=== PATIENT | male | born 1950 | race Two or more races ===

== ENCOUNTER 2022-03-09 20:11 | Inpatient (IN) | payer MEDICAID ==
[~2022-03-09] VITALS: Ht 165.1 cm; Wt 72.2 kg
[2022-03-09 22:26] LABS: Basophils # (auto) 0 10 ^3/uL (0-0.2); Basophils % (auto) 0.6 % (0.0-2.0); Eosinophils # (auto) 0.4 10 ^3/uL (0-0.8); Eosinophils % (auto) 5.9 % (0.0-7.0); Hematocrit 41.1 % (41.0-53.0); Hemoglobin 14.2 g/dL (13.5-17.5); Lymphocytes # (auto) 1.6 10 ^3/uL (0.4-5.4); Lymphocytes % (auto) 25.7 % (10.0-50.0); Mean Corpuscular Hemoglobin 29.6 pg (28.0-32.0); Mean Corpuscular Hgb Conc. 34.6 g/dL (32.0-36.0); Mean Corpuscular Volume 85.5 fL (80.0-100.0); Monocytes # (auto) 0.8 10 ^3/uL (0-1.3); Monocytes % (auto) 12.4 % (0.0-12.0); Neutrophils # (auto) 3.4 10 ^3/uL (1.6-8.6); Neutrophils % (auto) 55.4 % (37.0-80.0); Nucleated Red Blood Cells % 0.5 %; Red Cell Distribution Width 14.2 % (11.8-14.3); White Blood Cell 6.1 10^3/uL (4.4-10.8)
[2022-03-09 22:34] LABS: INR 0.98 (0.9-1.15)
[2022-03-09 22:38] LABS: Albumin 4.2 g/dL (3.4-5.0); BUN/Creatinine Ratio 18.6; Calcium 9.2 mg/dL (8.5-10.1); Potassium 4.4 mmol/L (3.5-5.1)
[2022-03-09 22:41] LABS: Bilirubin, Total 0.4 mg/dL (0.2-1.0); Total Protein 7.8 g/dL (6.4-8.2)
[2022-03-10] VITALS (8 sets, daily range): BP systolic 118–150; BP diastolic 55–91
[2022-03-10] MEDS ORDERED: HYDROcodone-ACET 5/325MG TAB PO PRN (03:15)
[2022-03-10] MEDS ORDERED: ACETAMINOPHEN 325 MG TAB PO PRN (03:15)
[2022-03-10] MEDS ORDERED: ONDANSETRON HCL 4 MG/2 ML VIAL IV PRN ×2 (03:15→15:15)
[2022-03-10] MEDS ORDERED: D5W/SOD CHLO 0.9% 1,000 ML IV SCH (03:15)
[2022-03-10] MEDS ORDERED: MORPHINE SULFATE INJ 2 MG/ml SYRG IV PRN (03:15)
[2022-03-10] MEDS: PANTOPRAZOLE 40 MG TAB PO SCH ×2 (09:56→09:58)
[2022-03-10] MEDS ORDERED: TETRACAINE 1% INJ 2 ML VIAL IJ ONE (13:49)
[2022-03-10] MEDS ORDERED: ceFAZolin 1GM/50ML 100 ML IV ONE (14:02)
[2022-03-10] MEDS ORDERED: fentaNYL CITRATE 100 MCG/2 ML VL ONE (14:24)
[2022-03-10] MEDS ORDERED: MIDAZOLAM HCL 2MG/2ML 2ml VIAL (1mg/ml) ONE (14:24)
[2022-03-10] MEDS ORDERED: MEPERIDINE HCL (50 MG/ML) 1 ML VIAL ONE (14:24)
[2022-03-10] MEDS ORDERED: MORPHINE SULF PF 5 MG/10 ML VIAL ONE (14:32)
[2022-03-10] MEDS ORDERED: PROPOFOL 10 MG/ML 20 ML IV ONE (15:00)
[2022-03-10] MEDS ORDERED: DexAMETHasone SOD PHOS 10MG/1ML VIAL INJ ONE (15:00)
[2022-03-10] MEDS ORDERED: NALOXONE HCL 0.4 MG/ML VIAL IV PRN (15:15)
[2022-03-10] MEDS ORDERED: NALBUPHINE HCL 10 MG/1ml INJECTION SUBCUT ONE (15:15)
[2022-03-10] MEDS ORDERED: HYDROmorphone HCL 2 MG/ML VL/or syr IV PRN (15:15)
[2022-03-10] MEDS ORDERED: MIDAZOLAM HCL 2MG/2ML 2ml VIAL (1mg/ml) IV PRN (15:15)
[2022-03-10] MEDS ORDERED: ePHEDrine SULFATE 50 MG/ML AMP IV PRN (15:15)
[2022-03-10] MEDS ORDERED: LABETALOL HCL 5 MG/ML 4ML SYRINGE IV PRN (15:15)
[2022-03-10] MEDS ORDERED: DexAMETHasone SOD PHOS 10MG/1ML VIAL INJ IV PRN (15:15)
[2022-03-10] MEDS ORDERED: HYDROcodone-ACET 10/325MG TAB PO PRN (15:45)
[2022-03-10] MEDS: LACTATED RINGER'S 1,000 ML IV SCH ×2 (15:45→20:30)
[2022-03-10] MEDS: SODIUM CHLOR 0.9% PF (SALINE LOCK) 10ML VIAL/SYR IV SCH (22:05)
[2022-03-10] MEDS: ceFAZolin 2 GM in D5W 5% 100 ML IV SCH (22:45)
[2022-03-11] VITALS (24 sets, daily range): BP systolic 96–133; BP diastolic 61–77
[2022-03-11] MEDS ORDERED: IBUP800T26 PO (01:12)
[2022-03-11] MEDS: SODIUM CHLOR 0.9% PF (SALINE LOCK) 10ML VIAL/SYR IV SCH ×3 (05:53→22:36)
[2022-03-11 07:20] LABS: Basophils # (auto) 0 10 ^3/uL (0-0.2); Basophils % (auto) 0.1 % (0.0-2.0); Eosinophils # (auto) 0 10 ^3/uL (0-0.8); Hematocrit 37.4 % (41.0-53.0); Hemoglobin 13.1 g/dL (13.5-17.5); Lymphocytes # (auto) 0.5 10 ^3/uL (0.4-5.4); Lymphocytes % (auto) 6.3 % (10.0-50.0); Mean Corpuscular Hemoglobin 29.8 pg (28.0-32.0); Mean Corpuscular Hgb Conc. 35.1 g/dL (32.0-36.0); Mean Corpuscular Volume 84.7 fL (80.0-100.0); Monocytes # (auto) 0.4 10 ^3/uL (0-1.3); Neutrophils # (auto) 7.3 10 ^3/uL (1.6-8.6); Neutrophils % (auto) 88.6 % (37.0-80.0); Nucleated Red Blood Cells % 0.1 %; Red Blood Cells 4.41 10^6/uL (4.5-5.90); Red Cell Distribution Width 14.3 % (11.8-14.3); White Blood Cell 8.2 10^3/uL (4.4-10.8)
[2022-03-11 08:33] LABS: Albumin 3.5 g/dL (3.4-5.0); BUN/Creatinine Ratio 19.4; Calcium 9.2 mg/dL (8.5-10.1); Potassium 4.1 mmol/L (3.5-5.1)
[2022-03-11 08:45] LABS: Bilirubin, Total 0.8 mg/dL (0.2-1.0); Total Protein 6.7 g/dL (6.4-8.2)
[2022-03-11] MEDS: PANTOPRAZOLE 40 MG TAB PO SCH (09:14)
[2022-03-11] MEDS: ceFAZolin 1GM/50ML 50 ML IV SCH ×2 (09:16→09:50)
[2022-03-11] MEDS: ceFAZolin 2 GM in D5W 5% 100 ML IV SCH (09:16)
[2022-03-11] MEDS ORDERED: APIXABAN 2.5 MG TAB PO SCH (10:00)
[2022-03-11] MEDS: LACTATED RINGER'S 1,000 ML IV SCH (14:00)
[2022-03-11] MEDS: APIXABAN 5 MG TAB PO SCH (22:33)
[2022-03-12 04:56] VITALS: BP 124/68
[2022-03-12] MEDS: LACTATED RINGER'S 1,000 ML IV SCH ×2 (05:27→07:44)
[2022-03-12] MEDS: SODIUM CHLOR 0.9% PF (SALINE LOCK) 10ML VIAL/SYR IV SCH ×2 (06:07→14:00)
[2022-03-12 06:10] LABS: Basophils # (auto) 0 10 ^3/uL (0-0.2); Basophils % (auto) 0.3 % (0.0-2.0); Eosinophils # (auto) 0.1 10 ^3/uL (0-0.8); Eosinophils % (auto) 1.6 % (0.0-7.0); Hematocrit 36.6 % (41.0-53.0); Lymphocytes # (auto) 1.2 10 ^3/uL (0.4-5.4); Lymphocytes % (auto) 14.3 % (10.0-50.0); Mean Corpuscular Hemoglobin 29.6 pg (28.0-32.0); Mean Corpuscular Hgb Conc. 35.5 g/dL (32.0-36.0); Mean Corpuscular Volume 83.4 fL (80.0-100.0); Monocytes % (auto) 11.7 % (0.0-12.0); Neutrophils # (auto) 6.3 10 ^3/uL (1.6-8.6); Neutrophils % (auto) 72.1 % (37.0-80.0); Nucleated Red Blood Cells % 0.1 %; Red Blood Cells 4.39 10^6/uL (4.5-5.90); Red Cell Distribution Width 14.3 % (11.8-14.3); White Blood Cell 8.7 10^3/uL (4.4-10.8)
[2022-03-12 06:23] LABS: Potassium 3.8 mmol/L (3.5-5.1)
[2022-03-12 08:00] VITALS: BP 122/71
[2022-03-12] MEDS: PANTOPRAZOLE 40 MG TAB PO SCH (09:06)
[2022-03-12] MEDS: APIXABAN 5 MG TAB PO SCH (09:06)
[2022-03-12] MEDS ORDERED: APIX5TAB PO (10:06)
[2022-03-12] MEDS ORDERED: IBUP800T26 PO (10:06)
[2022-03-12 11:23] VITALS: BP 122/71
[2022-03-12 13:00] VITALS: BP 130/82
== END 2022-03-12 16:30 | disposition home health service (06) | DRG 308 ==
LOC: ER 20:13 → EDSEX 20:13 → OVERFLOW 03-10 03:15 → CENTRAL 03-10 18:29 → TELE-CENTR 03-10 18:30 → CENTRAL 03-11 18:06
PROVIDERS: ADMIT Nurse Practitioner; ATTEND Hospitalist
PROC: 0QU73JZ Supplement Left Upper Femur with Synthetic Substitute, Percutaneous Approach (ICD-10-PCS; 2022-03-10)
PROC: 0QS736Z Reposition Left Upper Femur with Intramedullary Internal Fixation Device, Percutaneous Approach (ICD-10-PCS; principal; 2022-03-10 14:27)
DX: S72.142A Displaced intertrochanteric fracture of left femur, initial encounter for closed fracture (principal); I82.402 Acute embolism and thrombosis of unspecified deep veins of left lower extremity; S62.102A Fracture of unspecified carpal bone, left wrist, initial encounter for closed fracture; Z20.822 Contact with and (suspected) exposure to COVID-19; W18.39XA Other fall on same level, initial encounter; Y93.89 Activity, other specified; Y92.89 Other specified places as the place of occurrence of the external cause; Y99.8 Other external cause status
CPT/HCPCS: 36415; 71045; 73110; 73502; 73700; 76000; 80048; 80053; 84484; 85025; 85610; 86850; 86900; 86901; 87426; 93005; 93971; 96360; 97163; C1713; G0378; J0690; J1100; J2250; J2704; J7060